=== PATIENT | female | born 1945 | race Caucasian/White ===

== ENCOUNTER 2021-06-25 12:01 | Day surgery (SDC) | payer MEDICARE, BC ==
[~2021-06-25] VITALS: Ht 175.3 cm; Wt 91.9 kg
[~2021-06-25 12:01] MED LIST: ACETAMINOPHEN500 MG PO; ASPI81CH PO; GLIP2.5ER PO; HYDCHL25 PO; JARDIANCE10 MG PO; LOSARTAN POTAS100 M1 PO; Nortriptyline H50 MG PO; POTA8 PO; Percocet 5-3251 EACH PO; XARELTO20 MG PO
--- NOTE | 2021-06-25 13:12 | NUR ---
Ambulatory in Day Surgery Surgical site prepped with 2% Chlorhexidine cloth wipe. Vivian Paws warming gown applied. History, Chart, Medications and Allergies reviewed before start of procedure.Lungs clear T/O to Auscultation. Patient confirms NPO status and agrees with scheduled surgery. Pre-Op teaching done. Pt verbalizes understanding. Patient States Post-Procedure ride home has been arranged. Patient reports completing Chlorhexadine shower X2 prior to admission to hospital.
--- NOTE | 2021-06-25 19:24 | NUR ---
SHIFT SUMMARY ARRIVED TO UNIT AT 1620, DRANK SOME WATER & ATE SOME CRACKERS. THEN WISHED TO TAKE A NAP & HAS BEEN SLEEPING SINCE. VSS.
--- NOTE | 2021-06-26 03:23 | NUR ---
SHIFT SUMMARY A/O X4. VSS. POD1- L TKA, AQUACEL AND REMI WRAP IN PLACE, C/D/I. AMBULATING WITH FWW AND GB WITH STAND BY ASSIST. VOIDING WELL. TOLERATING PO INTAKE. NO PAIN REPORTED THIS SHIFT. WILL CONTINUE TO MONITIOR AND REPORT TO ONCOMING RN.
[2021-06-26 04:30] LABS: BASOPHILS ABSOLUTE AUTO 0.03 K/mm3 (0.00-0.23); BASOPHILS PERCENT AUTO 0 % (0-2); EOSINOPHILS ABSOLUTE AUTO 0.01 K/mm3 (0.00-0.68); EOSINOPHILS PERCENT AUTO 0 % (0-6); Hematocrit 34.6 % (33.0-51.0); Hemoglobin 11.6 g/dL (11.5-16.0); IMMATURE GRAN ABSOLUTE AUTO 0.05 K/mm3 (0.00-0.10); IMMATURE GRAN PERCENT AUTO 0 % (0-1); LYMPHOCYTES ABSOLUTE AUTO 1.18 K/mm3 (0.84-5.20); LYMPHOCYTES PERCENT AUTO 10 % (21-46); MONOCYTES ABSOLUTE AUTO 0.79 K/mm3 (0.16-1.47); MONOCYTES PERCENT AUTO 7 % (4-13); Mean Corpuscular HGB 31.7 pg (26.0-34.0); Mean Corpuscular HGB Conc 33.5 g/dL (31.5-36.5); Mean Corpuscular Volume 95 fL (80-100); NEUTROPHILS PERCENT AUTO 83 % (41-73); Platelet Count 212 K/mm3 (150-400); RDW Coefficient Variation 12.8 % (11.7-14.2); RDW Standard Deviation 44.5 fL (35.1-46.3); Red Blood Cell Count 3.66 M/mm3 (3.80-5.20); White Blood Cell Count 12.16 K/mm3 (4.00-11.30)
[2021-06-26 04:54] LABS: Anion Gap 8 mmol/L (6-16); Blood Urea Nitrogen 26 mg/dL (8-24); Bun/Creatinine Ratio 32.9 (12.0-20.0); CO2, Blood 24 mmol/L (21-32); Calcium, Blood 8.3 mg/dL (8.5-10.1); Chloride, Blood 105 mmol/L (98-108); Creatinine, Blood 0.79 mg/dL (0.40-1.00); Glomerular Filtration Rate >60 (60-); Glucose, Blood 121 mg/dL (70-99); Potassium, Blood 3.8 mmol/L (3.5-5.5); Sodium, Blood 137 mmol/L (136-145)
[2021-06-26] MEDS ORDERED: Percocet 5-3251 EACH PO (08:01)
[2021-06-26] MEDS ORDERED: ASPIR 8181 M1 PO (08:01)
--- NOTE | 2021-06-26 10:48 | NUR ---
DISCHARGE NOTE: PATIENT AND DAUGHTER WERE EDUCATED ON DISCHARGE INSTRUCTIONS. BOTH OF THEM VERBALIZED UNDERSTANDING OF INSTRUCTIONS. IV WAS TAKEN OUT AND WNL. PAIN IS MANAGED WITH PO PAIN MEDICATIONS. HARD PERSCRIPTIONS ARE IN THE INSTRUCTION FOLDER. PATIENT IS ALERT AND ORIENTED X4. VS ARE WNL AND IS ON RA. LEFT HIP AQUACEL AND REMI WRAP IS C/D/I. SHE IS DRESSED AND HAS ALL ITEMS IN THE ROOM GATHERED. SHE IS BEING WHEELCHAIRED OUT TO HER DAUGHTERS CAR TO TAKE HER HOME.
--- NOTE | 2021-06-26 15:52 | NUR ---
06/26/21 1552 Carlos Crabtree VERIFICATION: CORRECTIONS
== END 2021-06-26 09:58 | disposition home or self-care (01) ==
LOC: ORSCMMR 12:01 → ORD 13:30 → SURS 16:05 → ORSCMMR 06-26 09:58
PROVIDERS: Orthopaedic Surgery
PROC: 0SRB0JA Replacement of Left Hip Joint with Synthetic Substitute, Uncemented, Open Approach (ICD-10-PCS; principal; 2021-06-25 13:30)
DX: M16.12 Unilateral primary osteoarthritis, left hip (principal); I10 Essential (primary) hypertension; E11.9 Type 2 diabetes mellitus without complications; Z79.84 Long term (current) use of oral hypoglycemic drugs; Z79.899 Other long term (current) drug therapy; Z79.82 Long term (current) use of aspirin
CPT/HCPCS: 36415; 72170; 80048; 82947; 85025; 97110; 97161; A9270; C1776; J0171; J0690; J0735; J1100; J1815; J1885; J2250; J2370; J2405; J2704; J2795; J3010; J3370; J7050; J7120

== ENCOUNTER → 2022-08-11 | Outpatient (CLI) | payer MEDICARE, BC ==
[~2022-08-11] MED LIST changes: +ASPIR 8181 M1 PO
== END | disposition home or self-care (01) ==
LOC: LAB SHORT 13:54 → PLD 13:54
DX: D17.24 Benign lipomatous neoplasm of skin and subcutaneous tissue of left leg (principal); M79.672 Pain in left foot; M25.572 Pain in left ankle and joints of left foot; M89.8X7 Other specified disorders of bone, ankle and foot; M79.89 Other specified soft tissue disorders
CPT/HCPCS: 88304

== ENCOUNTER → 2022-08-25 | Outpatient (CLI) | payer MEDICARE, BC | END | disposition home or self-care (01) | LOC: LAB 09:00 → LAB SHORT 09:00 | DX: Z48.89 Encounter for other specified surgical aftercare (principal) | CPT/HCPCS: 87070; 87075; 87205 ==

== ENCOUNTER → 2023-02-23 | Outpatient (CLI) | payer MEDICARE, BC | LOC: LAB SHORT 19:02 → LAB 19:02 | DX: N39.0 Urinary tract infection, site not specified (principal) | CPT/HCPCS: 87086 ==

== ENCOUNTER → 2023-09-11 | Outpatient (CLI) | payer MEDICARE, BC ==
[2023-09-11 16:14] LABS: Albumin, Blood 4.1 g/dL (3.4-5.0); Albumin/Globulin Ratio 1.1 (0.8-1.8); Bilirubin, Total 0.4 mg/dL (0.1-1.0); Bun/Creatinine Ratio 32.7 (12.0-20.0); Calcium, Blood 9.7 mg/dL (8.5-10.1); Creatinine, Blood 0.74 mg/dL (0.40-1.00); Globulin, Blood 3.8 g/dL (2.2-4.0); Potassium, Blood 4.7 mmol/L (3.5-5.5); Thyroid Stimulating Hormone 0.929 uIU/mL (0.360-4.800); Total Protein, Blood 7.9 g/dL (6.4-8.2)
[2023-09-11 16:52] LABS: Creatinine, Urine Random 63.4 mg/dL (27.00-270.00)
[2023-09-11 16:55] LABS: Microalb/Creat Ratio UR, Rand 12.334 mg/g (0.000-30.000); Microalbumin, Random Urine 7.82 mg/L (0.000-20.000)
== END | disposition home or self-care (01) ==
LOC: LAB SHORT 15:19 → LAB 15:19
PROVIDERS: Family Medicine
DX: E11.9 Type 2 diabetes mellitus without complications (principal)
CPT/HCPCS: 80053; 82043; 82570; 84443

== ENCOUNTER → 2023-09-17 | Outpatient (CLI) | payer MEDICARE, BC | END | disposition home or self-care (01) | LOC: LAB SHORT 11:35 → LAB EV 11:35 | DX: E11.9 Type 2 diabetes mellitus without complications (principal) ==

== ENCOUNTER → 2024-06-03 | Outpatient (CLI) | payer MEDICARE, BC | LOC: LAB 11:43 → LAB SHORT 11:43 | DX: N39.0 Urinary tract infection, site not specified (principal) | CPT/HCPCS: 87077; 87086; 87186 ==

== ENCOUNTER 2024-06-28 10:53 | Day surgery (SDC) | payer MEDICARE, BC ==
[~2024-06-28] VITALS: Ht 177.8 cm; Wt 91.8 kg
[~2024-06-28 10:53] MED LIST changes: +Balanced Salt Epinephrine Irrigation Solution 500 mL IR SCH; +Lidocaine HCl/Pf 1% 5 ML VIAL XX SCH; +Moxifloxacin HCL 0.5 MG/0.1 ML 0.4MLSYR RIGHTEYE SCH; +PHENYLEPHRINE\\TROPICAMIDE\\TETRACAINE OPHTHALMIC DILATING SOLN RIGHTEYE PRN; +Povidone-Iodine 450 DROP/30 ML Solution ONE; +Povidone-Iodine 450 DROP/30 ML Solution RIGHTEYE SCH; +Tetracaine HCl/Pf 0.5% Opth Soln 4 ml ONE
[2024-06-28] MEDS ORDERED: Diazepam 2 MG Tab ONE (11:26)
[2024-06-28] MEDS ORDERED: Diazepam 5 MG Tab ONE (11:26)
[2024-06-28] MEDS ORDERED: Ondansetron HCl 2 MG / ML 2ML Vial ONE (11:49)
[2024-06-28] MEDS ORDERED: POTCHL20ER PO (11:52)
[2024-06-28] MEDS ORDERED: MINO10 PO (11:54)
[2024-06-28] MEDS ORDERED: OZEMPIC0.25 MG/02 SC (11:54)
[2024-06-28 12:37] VITALS: BP 122/71
[2024-06-28] MEDS ORDERED: Tropicamide 1% Opth Soln 15 ML BTL ONE (12:38)
== END 2024-06-28 12:56 | disposition home or self-care (01) ==
LOC: ORSCSDS 10:53
PROVIDERS: Student in an Organized Health Care Education/Training Program
PROC: 08RJ3JZ Replacement of Right Lens with Synthetic Substitute, Percutaneous Approach (ICD-10-PCS; principal; 2024-06-28 12:30)
DX: E11.36 Type 2 diabetes mellitus with diabetic cataract (principal); H25.813 Combined forms of age-related cataract, bilateral; H52.201 Unspecified astigmatism, right eye; H21.81 Floppy iris syndrome; I10 Essential (primary) hypertension; Z87.891 Personal history of nicotine dependence; G47.33 Obstructive sleep apnea (adult) (pediatric); Z79.85 Long-term (current) use of injectable non-insulin antidiabetic drugs; Z79.899 Other long term (current) drug therapy
CPT/HCPCS: 82947; A9270; J2405; V2632

== ENCOUNTER 2024-07-12 11:21 | Day surgery (SDC) | payer MEDICARE, BC ==
[~2024-07-12] VITALS: Ht 177.8 cm; Wt 94.5 kg
[~2024-07-12 11:21] MED LIST changes: +Diazepam 2 MG Tab ONE; +Diazepam 2 MG Tab PO PRN; +Diazepam 2 MG Tab PO SCH; +MINO10 PO; +Moxifloxacin HCL 0.5 MG/0.1 ML 0.4MLSYR LEFTEYE SCH; -Moxifloxacin HCL 0.5 MG/0.1 ML 0.4MLSYR RIGHTEYE SCH; +OZEMPIC0.25 MG/02 SC; +Ondansetron 4 MG SoluTab MM PRN; +PHENYLEPHRINE\\TROPICAMIDE\\TETRACAINE OPHTHALMIC DILATING SOLN LEFTEYE PRN; -PHENYLEPHRINE\\TROPICAMIDE\\TETRACAINE OPHTHALMIC DILATING SOLN RIGHTEYE PRN; +POTCHL20ER PO; +Povidone-Iodine 450 DROP/30 ML Solution LEFTEYE SCH; -Povidone-Iodine 450 DROP/30 ML Solution RIGHTEYE SCH
[2024-07-12] MEDS ORDERED: Diazepam 5 MG Tab ONE (11:22)
--- NOTE | 2024-07-12 11:43 | NUR ---
07/12/24 1143 Andreina Sebastian 1140: ANXIETY 0/10 PER PATIENT 1141: PATIENT IS 79 YRS OLD, 7 MG PO VALIUM GIVEN PER ORDERS. BP CHECKED AND LUNGS CLEAR TO AUSCULTATION PRIOR TO ADMIN. PER PATIENT SHE DID NOT TAKE ANY RELAXING MEDICATION THIS MORNING, DID NOT RECEIVE ANY PRESCRIPTION FOR ANY.
[2024-07-12 12:31] VITALS: BP 121/70
--- NOTE | 2024-07-12 12:56 | NUR ---
07/12/24 1255 Jo Ann Cox PT WAITING ON RIDE, CALLED AT [phone]
[2024-07-12] MEDS ORDERED: Acetaminophen 500 MG Tab ONE (13:06)
== END 2024-07-12 12:48 | disposition home or self-care (01) ==
LOC: ORSCSDS 11:21
PROVIDERS: Student in an Organized Health Care Education/Training Program
PROC: 08RK3JZ Replacement of Left Lens with Synthetic Substitute, Percutaneous Approach (ICD-10-PCS; principal; 2024-07-12 12:30)
DX: E11.36 Type 2 diabetes mellitus with diabetic cataract (principal); H25.12 Age-related nuclear cataract, left eye; H52.202 Unspecified astigmatism, left eye; H21.81 Floppy iris syndrome; Z96.1 Presence of intraocular lens; I10 Essential (primary) hypertension; Z79.899 Other long term (current) drug therapy; Z87.891 Personal history of nicotine dependence; Z79.4 Long term (current) use of insulin; Z79.85 Long-term (current) use of injectable non-insulin antidiabetic drugs; Z79.84 Long term (current) use of oral hypoglycemic drugs
CPT/HCPCS: 82947; A9270; V2632

== ENCOUNTER → 2025-04-19 | Outpatient (CLI) | payer MEDICARE, BC ==
[~2025-04-19] MED LIST changes: -Balanced Salt Epinephrine Irrigation Solution 500 mL IR SCH; -Diazepam 2 MG Tab ONE; -Diazepam 2 MG Tab PO PRN; -Diazepam 2 MG Tab PO SCH; -Lidocaine HCl/Pf 1% 5 ML VIAL XX SCH; -Moxifloxacin HCL 0.5 MG/0.1 ML 0.4MLSYR LEFTEYE SCH; -Ondansetron 4 MG SoluTab MM PRN; -PHENYLEPHRINE\\TROPICAMIDE\\TETRACAINE OPHTHALMIC DILATING SOLN LEFTEYE PRN; -Povidone-Iodine 450 DROP/30 ML Solution LEFTEYE SCH; -Povidone-Iodine 450 DROP/30 ML Solution ONE; -Tetracaine HCl/Pf 0.5% Opth Soln 4 ml ONE
== END ==
LOC: LAB SHORT 17:21 → LAB 17:21
DX: R35.0 Frequency of micturition (principal)
CPT/HCPCS: 87077; 87086; 87186

== ENCOUNTER → 2025-05-03 | Outpatient (CLI) | payer MEDICARE, BC | LOC: LAB 09:12 → LAB SHORT 09:12 | DX: N39.0 Urinary tract infection, site not specified (principal) | CPT/HCPCS: 87086 ==